=== PATIENT | male | born 1960 | race Caucasian/White ===

== ENCOUNTER → 2017-01-09 | Outpatient (CLI) | payer BC, OTHER ==
[~2017-01-09] MED LIST: methylPREDNISolone 80 MG/ML (DEPO MEDROL) VIAL IM ONE
--- NOTE | 2017-01-09 14:51 | PAIN MANAGEMENT ---
Date of note: 01/09/2017 PROCEDURE: Epidural steroid injection at L5-S1 under fluoroscopy. TOTAL FLUOROSCOPIC TIME: 21 seconds. This is a 56-year-old patient of Dr. Talamantes in [facility] and his PA Manuel Molina. 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 He is displaying signs of radiculopathy in the right leg. Informed consent was achieved for and epidural steroid injection at L5-S1 using fluoroscopy. Orders for procedure verified. Patient denies any bleeding tendencies. After informed consent obtained, the patient was positioned for the lumbar epidural steroid injection. The area was prepped and draped using aseptic technique. The skin and overlying tissues were localized using 3 mL of 1% Preservative-Free lidocaine using a 25-gauge 1.5-inch needle. A 20-gauge Tuohy needle was advanced, using "loss of resistance" technique, to the epidural space. No blood, cerebral spinal fluid, pain, or paresthesia noted on entry of the epidural space. A 1 mL solution of Depo-Medrol 80 mg was injected slowly without mass volume effect. The patient was placed in supine position 15 minutes prior to being released with proper leg strength and vitals. Pre- and post procedure vital signs stable with no sensory or motor deficit noted. Instruction on followup contact and care provided to the patient.
== END ==
LOC: PMC 08:53
PROVIDERS: ATTEND Physician Assistant
PROC: 3E0R33Z Introduction of Anti-inflammatory into Spinal Canal, Percutaneous Approach (ICD-10-PCS; principal; 2017-01-09)
PROC: B01BZZZ Fluoroscopy of Spinal Cord (ICD-10-PCS; 2017-01-09)
DX: M99.83 Other biomechanical lesions of lumbar region (principal); M54.17 Radiculopathy, lumbosacral region
CPT/HCPCS: 62323; J1040